=== PATIENT | female | born 1930 | race Caucasian/White ===

== ENCOUNTER 2017-02-21 22:28 | Inpatient (IN) | payer MEDICARE, OTHER ==
[~2017-02-21] VITALS: Ht 157.5 cm; Wt 75.9 kg
[~2017-02-21 22:28] MED LIST: ADVAIR 500-501 EACH INH; ASPIR-LOW81 MG PO; ASPIRIN EC81 MG PO; CENTRUM COMPLE1 EACH PO; KLONOPIN TAB 00.5 MG PO; LASIX20 MG PO; LOSARTAN POTASS50 MG PO; NORVASC 5 MG TAB5 MG PO; PRAVASTATIN SOD20 MG PO; PREDNISONE 10 M10 MG PO; PREDNISONE20 MG PO; PROTONIX40 MG PO; PROVENTIL HFA 61 INH INH; SINGULAIR10 MG PO; TYLENOL 325MG325 MG PO; ZANTAC300 MG PO
[2017-02-21 23:39] LABS: HEMOGLOBIN 12.8 gm/dl (12.3-15.3); RED BLOOD COUNT 4.4 M/UL (4.00-5.10); WHITE BLOOD COUNT 14.2 K/UL (4.5-11.0)
[2017-02-22] MEDS ORDERED: PREDNISONE5 MG PO (05:12)
[2017-02-23 06:17] LABS: HEMOGLOBIN 11.6 gm/dl (12.3-15.3); RED BLOOD COUNT 4.06 M/UL (4.00-5.10); WHITE BLOOD COUNT 15.8 K/UL (4.5-11.0)
[2017-02-24 14:35] LABS: HEMOGLOBIN 11.8 gm/dl (12.3-15.3); RED BLOOD COUNT 4.06 M/UL (4.00-5.10)
[2017-02-26 04:58] LABS: HEMOGLOBIN 10.1 gm/dl (12.3-15.3)
[2017-02-26 05:07] LABS: RED BLOOD COUNT 3.58 M/UL (4.00-5.10); WHITE BLOOD COUNT 9.5 K/UL (4.5-11.0)
== END 2017-02-26 09:14 | DRG 563 ==
LOC: ER1 22:28 → MED SURG 4 02-22 03:10 → ZEROF 02-22 03:10 → MED SURG 4 02-22 04:57
PROVIDERS: Internal Medicine; Physician Assistant; Physician Assistant Medical; ADMIT Internal Medicine
PROC: 0RSJXZZ Reposition Right Shoulder Joint, External Approach (ICD-10-PCS; principal; 2017-02-22)
DX: S43.004A Unspecified dislocation of right shoulder joint, initial encounter (principal); S32.9XXA Fracture of unspecified parts of lumbosacral spine and pelvis, initial encounter for closed fracture; I50.32 Chronic diastolic (congestive) heart failure; E87.1 Hypo-osmolality and hyponatremia; W01.0XXA Fall on same level from slipping, tripping and stumbling without subsequent striking against object, initial encounter; S51.812A Laceration without foreign body of left forearm, initial encounter; I25.10 Atherosclerotic heart disease of native coronary artery without angina pectoris; I48.0 Paroxysmal atrial fibrillation; I10 Essential (primary) hypertension; J45.909 Unspecified asthma, uncomplicated; E78.5 Hyperlipidemia, unspecified; D64.9 Anemia, unspecified; Z98.61 Coronary angioplasty status; Z95.1 Presence of aortocoronary bypass graft; Z95.0 Presence of cardiac pacemaker; Z90.711 Acquired absence of uterus with remaining cervical stump; Z28.21 Immunization not carried out because of patient refusal
CPT/HCPCS: 12004; 36415; 70450; 71010; 72125; 72170; 72192; 73020; 73060; 73552; 80048; 80053; 81001; 83880; 84484; 85025; 85027; 94640; 94664; 96374; 96375; 97110; 97530; 99285; J1650; J1956; J2270; J2405; Q0162